=== PATIENT | female | born 1955 ===

== ENCOUNTER 2018-11-17 21:54 | Emergency (ER) | payer OTHER ==
[~2018-11-17] VITALS: Ht 167.6 cm; Wt 70.0 kg
[2018-11-18] MEDS ORDERED: KETOROLAC 30MG/ML VIAL IM ONE (02:00)
[2018-11-18 03:54] VITALS: BP 109/78
[2018-11-18] MEDS ORDERED: BACITRACIN ZINC OINT UDPKT TOP ONE (04:15)
[2018-11-18] MEDS: BACITRACIN 15GM TUBE TOP NR ×2 (05:00→05:39)
== END 2018-11-18 05:46 | disposition home or self-care (01) ==
LOC: ER 21:54
DX: S50.12XA Contusion of left forearm, initial encounter (principal); S50.01XA Contusion of right elbow, initial encounter; R07.89 Other chest pain; Y35.093A Legal intervention involving other firearm discharge, suspect injured, initial encounter; Y93.89 Activity, other specified; Y92.89 Other specified places as the place of occurrence of the external cause
CPT/HCPCS: 71045; 73080; 73090; 73110; 93005; 96372; 99283; J1885